=== PATIENT | male | born 1980 | race Hispanic/Latino ===

== ENCOUNTER 2016-12-04 09:10 | Emergency (ER) | payer OTHER ==
[2016-12-04 09:14] VITALS: BP 122/74; PULSE 77; RESP 20; O2SAT 98
--- NOTE | 2016-12-04 10:41 | ED.REPORT ---
HPI-Neurologic Deficit Date of Service Dec 04, 2016 ED Provider: Neto Tomlinson DO Patient is a 36 year old male who presents to the ED complaining of R side facial numbness onset yesterday morning. Associated symptoms include facial tingling. He denies fever, rash, focal weakness, or any other symptoms. He had similar symptoms in 2009. Nursing Notes Stated Complaint: RIGHT SIDE OF FACE NUMB Chief Complaint: Neuro Symptoms/ Deficits Nursing Notes Reviewed: Yes Allergies: Coded Allergies: No Known Allergies (Unverified , 12/04/16) Scheduled Acyclovir (Acyclovir) 400 Mg Tablet 400 MG PO 5XD Prednisone (PredniSONE) 20 Mg Tablet 60 MG PO DAILY Miscellaneous Medications ([none]) General Time Seen by Provider: 10:45 Chief Complaint Other (Facial Numbness) Hx Obtained From: Patient Arrived By: Walk-in Sudden in Onset?: Yes Onset Occurred: Yesterday Symptom Duration: Since onset Similar Sx Previous: Yes Past Medical History Past Medical History Normally healthy Past Surgical History Denies Smoking History Never Smoker Social History Alcohol Use: "Social" Other Social History: Local resident Ambulatory Status Independent Review of Systems Constitutional: Denies: Fever Skin: Denies Rash Neurologic: Reports: Numbness (Facial with tingling ), Denies: Focal weakness, Slurred speech Complete sys rev & neg: except as marked. Physical Exam Initial Vital Signs Vital Signs (First) Date Time Temp Pulse Resp B/P Pulse Ox O2 Delivery O2 Flow Rate FiO2 12/04/16 09:14 36.5 77 20 122/74 98 Room Air Initial VS: Reviewed ENT: Mucous membranes moist, Conjunctiva normal, No scleral icterus Neck: Full range of motion Skin: Warm, Dry Psychiatric: Mood/affect normal, Behavior normal, Normal thought content General/Constitutional: Awake, Alert, Well developed Head / Eyes: Atraumatic, Normocephalic, PERRL Respiratory / Chest: No respiratory distress Cardiovascular: Heart rate NL, Regular rhythm, Heart sounds NL Neurologic: Oriented X3, Speech NL R side cranial nerve 7 palsy incomplete eyebrow raising ptosis of R eyelid R lower facial droop No other neuro deficits other than R side face Re-Eval/Medical Decision Med Decision/Clinical Course Clinically, this is Flores's palsy. Will be started on acyclovir, prednisone, and eye medications. Return and follow-up precautions given Re-Evaluation/Progress : Time of Eval: 11:20 )( Re-Eval Neurologic Exam: Alert, Oriented X3 Re-Evaluation/Progress Note: Discussed plan for discharge. Patient understands and agrees with plan. All questions addressed at this time. Counseled Regarding: Diagnosis, Need for follow-up, When/why to return to ED Discharge & Departure Impression: Primary Impression: Flores's palsy Disposition: Home Discharge Condition All VS Reviewed: Yes Condition: Stable Additional Instructions: You have Flores's palsy. In most cases this resolves after approximately 6 months or sooner. Take acyclovir and prednisone. Use eyedrops throughout the day and lubrication at night. Follow-up with a regular doctor who can further help manage your symptoms. Return to the ER for any progressive signs or symptoms beyond your face. Referrals: Cesia Sears MD (PCP) Renee Escalante MD (Family) Scribe Attestation Portions of this note were transcribed by Preston Hernandez. I, Dr. Tomlinson personally performed the history, physical exam and medical decision-making; I reviewed and confirmed the accuracy of the information in the transcribed note. Signed by: Preston Hernandez 12/04/16, 1139 copies to: Renee Escalante MD; Cesia Sears MD, Timothy S DO Dec 04, 2016 10:41 PRESTON HERNANDEZ Dec 04, 2016 10:56
[2016-12-04] MEDS ORDERED: Acyclovir 400 mg Tablet PO ONE (11:15)
[2016-12-04] MEDS ORDERED: predniSONE 20 mg Tablet PO ONE (11:15)
[2016-12-04] MEDS ORDERED: PRE20 PO (11:22)
[2016-12-04] MEDS ORDERED: ACYC400T2 PO (11:22)
[2016-12-04 11:35] VITALS: BP 119/82; PULSE 77; RESP 16; O2SAT 99
== END 2016-12-04 11:36 | disposition home or self-care (01) ==
LOC: SED 09:10
DX: G51.0 Bell's palsy (principal)

== ENCOUNTER 2017-01-19 08:40 | Day surgery (SDC) | payer OTHER ==
[~2017-01-19] VITALS: Ht 160 cm; Wt 63.5 kg
[~2017-01-19 08:40] MED LIST: ACYC400T2 PO; PRE20 PO
[2017-01-19] MEDS ORDERED: Iohexol 240 mg/mL 10 mL Inj ONE (08:41)
[2017-01-19] MEDS ORDERED: Dexamethasone 10 mg/mL Inj ONE (08:41)
[2017-01-19] MEDS ORDERED: OXYC5CAP4 PO (08:54)
[2017-01-19 08:56] VITALS: BP 128/79; PULSE 91; RESP 14; O2SAT 98
[2017-01-19 09:16] VITALS: BP 102/61; PULSE 52; RESP 16; O2SAT 99
--- NOTE | 2017-01-19 15:26 | PCM.PROC ---
Procedure Note Date of Service: Jan 19, 2017 Pre Procedure Diagnosis: PROCEDURE: LEFT L5 transforaminal epidural steroid injection PRE-PROCEDURE DIAGNOSIS: Lumbar radiculopathy POST-PROCEDURE DIAGNOSIS: same INDICATION: 36-year-old patient with LEFT lumbar radiculopathy referred for LEFT L5 transforaminal epidural steroid injection PERFORMED BY: Bennett Chang MD DESCRIPTION OF PROCEDURE: Patient was met in the holding area. Consent was signed, site was confirmed and all questions were answered. was taken to the procedure suite and placed prone on the procedure table. The image intensifier was manipulated to minimize double shadows of the vertebral endplates above the neural foramen to be addressed. The image intensifier was rotated 30 ipsilaterally for John dog appearance. A 25- gauge 5 -inch Quincke needle was advanced towards the target area using tunnel view. The image intensifier was then changed to the lateral view and the needle was advanced towards the "safe triangle". Proper positioning was confirmed in the AP view so the tip of the needle ended at the most inferolateral aspect of the superior pedicle. Proper positioning was confirmed with injection of radiopaque contrast dye which showed delineation of the nerve root as well as epidural spread. The contrast was then injected under live fluoroscopy to rule out inadvertent vascular uptake. 1 cc of 2% Lidocaine was injected slowly. After 1 minute the patient was found to be able to move the legs appropriatelywith no signs or symptoms of vascular uptake of the lidocaine 10 mg dexamethasone was injected followed by another 1/2 cc of 2% Lidocaine . ANESTHESIA: Local EBL: None. No Blood Products Used COMPLICATIONS: None SPECIMENS: None POST-PROCEDURE DISPOSITION: Patient was returned to the holding area in stable condition. They were discharged home when all discharge criteria were met. Evaluation/Physical Exam before discharge revealed: Preprocedure pain: 6/10, post procedure pain: 0/10 DISCHARGE MEDICATIONS: (none, unless otherwise noted) FOLLOW UP: Followup with John Pandya in 2 weeks. Bennett Chang MD * Pain Management * Anesthesiology .ED: Y: Patient given care and follow up instructions Bennett Chang MD Jan 19, 2017 15:26
== END 2017-01-19 23:59 | disposition home or self-care (01) ==
LOC: END 08:40
PROVIDERS: ATTEND Anesthesiology Pain Medicine
DX: M54.16 Radiculopathy, lumbar region (principal)
CPT/HCPCS: 64483; J1100